=== PATIENT | male | born 1955 | race Hispanic/Latino ===

== ENCOUNTER 2022-04-09 08:23 | Day surgery (SDC) | payer MEDICARE ==
[2022-04-05 13:36] VITALS: BMI 30.9
[2022-04-09] MEDS ORDERED: PROPOFOL 40 ML ONE (09:15)
[2022-04-09] MEDS ORDERED: Lidocaine 1% PF 5 ML VIAL ONE (09:15)
[2022-04-09] MEDS ORDERED: Lidocaine 1% MPF 2 ML VIAL ONE (09:48)
== END 2022-04-09 11:44 | disposition home or self-care (01) ==
LOC: CSHSDC 08:23
PROVIDERS: ATTEND Internal Medicine Gastroenterology
PROC: 0DBP8ZZ Excision of Rectum, Via Natural or Artificial Opening Endoscopic (ICD-10-PCS; principal; 2022-04-09)
DX: Z12.11 Encounter for screening for malignant neoplasm of colon (principal); K62.1 Rectal polyp; K64.9 Unspecified hemorrhoids; K57.30 Diverticulosis of large intestine without perforation or abscess without bleeding; K62.6 Ulcer of anus and rectum; I10 Essential (primary) hypertension; F41.9 Anxiety disorder, unspecified; M10.9 Gout, unspecified; Z94.4 Liver transplant status; Z86.16 Personal history of COVID-19; M19.90 Unspecified osteoarthritis, unspecified site
CPT/HCPCS: 88305; J2704